=== PATIENT | male | born 1970 | race Caucasian/White ===

== ENCOUNTER → 2019-02-10 09:37 | Day surgery (SDC) | payer OTHER ==
[~2019-02-10 09:37] MED LIST: Acetaminophen TAB* 325 MG PO PRN; Buffered Lidocaine 1% SYRIN* 1 ML/SYRINGE INTRADERM ONE; Bupivacaine 0.5%* 50 ML VIAL ONE; Chloroprocaine 2%* 20 ML VIAL ONE; HYDROcodone/ACETAMIN 5-325 MG* 1 TAB ONE; HYDROcodone/ACETAMIN 5-325 MG* 1 TAB PO PRN; HYDROmorphone INJ1* 1 MG/ML SYRINGE IV PRN; Ketorolac INJ* 30 MG/ML 1 ML VIAL IV PRN; Midazolam* 1 MG/ML 2 ML VIAL (2 MG) ONE; Naloxone* 0.4 MG/ML 1 ML VIAL IV PRN; Propofol* 10 MG/ML 20 ML BTL ONE; ceFAZolin 2 GM in NS PREMIX(*) 2 GM/100 ML BAG IVPB ONE; fentaNYL* 50 MCG/ML 2 ML VIAL (100 MCG VIAL) IV PRN; fentaNYL* 50 MCG/ML 2 ML VIAL (100 MCG VIAL) ONE
[2019-02-10 15:57] VITALS: BP 156/97
--- NOTE | 2019-02-11 01:37 | OP ---
DATE OF OPERATION: 02/10/19 - [facility] DATE OF : 74 SURGEON: Ramos Chrisyt MD TECHNICAL MARKETING ENGINEER: Sapna King PA-C PRE-OP DIAGNOSIS: Displaced left intraarticular calcaneus fracture. POST-OP DIAGNOSIS: Displaced left intraarticular calcaneus fracture. OPERATIVE PROCEDURE: Internal fixation, left calcaneus. DESCRIPTION OF PROCEDURE: The patient was taken to the operating room where lateral extensile Benirschke incision was performed. We protected the sural nerve proximally, the peroneals distally and raised the full-thickness flap off the lateral calcaneus. The thalamic fragment was mobilized and hinged posteriorly. Then, we reduced the primary fracture line with a small Maldonado elevator pinning this temporarily from a pin from the heel up into the talus. We then replaced the thalamic fragment using the plain reduction clamp pinning this temporarily with 0.04 to 4.5 C-wires. We chose a medium sized calcaneal plate off of the Arthrex kit. This was placed along the lateral border of the calcaneus. We fixed couple of screws into the posterior aspect of the calcaneus and then a couple of screws into the anterior posterior of the calcaneus and then replaced the 2 pins through the thalamic fragment with lag screws through the upper portion of the plate. X- rays intraoperatively showed neutral Franklin view and good lateral view showing good reduction of the intraarticular fragment. We irrigated thoroughly, closing the subcu with interrupted Monocryl sutures, nylon for the skin and a compression dressing and plaster splint applied. [id number]/[facility] #: [id number] MTDM[place]ille
== END | disposition home or self-care (01) ==
LOC: OR 09:37
PROVIDERS: ATTEND Orthopaedic Surgery
DX: S92.062A Displaced intraarticular fracture of left calcaneus, initial encounter for closed fracture (principal); Z72.0 Tobacco use; K21.9 Gastro-esophageal reflux disease without esophagitis; F41.8 Other specified anxiety disorders; W11.XXXA Fall on and from ladder, initial encounter; Y92.009 Unspecified place in unspecified non-institutional (private) residence as the place of occurrence of the external cause
CPT/HCPCS: 62323; C1713; J0690; J2250; J2400; J2704; J3010; J3490